=== PATIENT | male | born 1965 | race Caucasian/White ===

== ENCOUNTER → 2021-04-21 16:14 | Outpatient (BNVA) | payer OTHER, SELFPAY | PROVIDERS: Visit Provider Surgery | DX: Z11.52 Encounter for screening for COVID-19 (principal) | CPT/HCPCS: 87635 ==

== ENCOUNTER 2021-04-25 06:09 | Day surgery (SDC) | payer SELFPAY ==
[2021-04-24 09:35] VITALS: BMI 21.2
--- NOTE | 2021-04-25 06:28 | W.PM.OPSUD ---
Surgery/Procedure H&P Update DATE OF PROCEDURE: April 25, 2021 DATE H&P PERFORMED: 03/27/21 H&P UPDATE INFORMATION: I have reviewed H&P completed within last 30 days, I have examined patient prior to procedure and Changes to prior documentation as noted here CHANGES TO PREVIOUS DOCUMENTATION: After further evaluation of the patient, today is the hernia appears much larger than the day of the clinic encounter. And given the fact that the patient is a chronic smoker with the potential laparoscopic approach may affect his pulmonary status. I did further counseled the patient to go ahead with open approach from the beginning, patient and his spouse agreed on that. PREOP DIAGNOSIS: Right inguinal Hernia PRIMARY INDICATION FOR PROCEDURE: The same PLANNED PROCEDURE: Operation Date: 04/25/21 08:00 Proposed Procedures p LAP RIGHT INGUINAL HERNIA REPAIR WITH MESH- [id number] k40.90(Right) - Taqueria Bosch MD
[2021-04-25 06:30] VITALS: BP 129/81; PULSE 72; RESP 18; TEMP 36.8; O2SAT 97
[2021-04-25] MEDS: sodium chloride 0.9% 1,000 ML 30 ML IV (06:40)
--- NOTE | 2021-04-25 06:45 | ANES.PREANE2 ---
Pre-Anesthetic Assessment Pre-Anesthetic Assessment: Height/Weight: Height 1.73 m Weight 63.503 kg Temp Pulse Resp BP Pulse Ox 98.3 F 72 18 129/81 97 04/25/21 06:30 04/25/21 06:30 04/25/21 06:30 04/25/21 06:30 04/25/21 06:30 Preop Diagnosis: Right inguinal Hernia Proposed Procedure: Operation Date: 04/25/21 08:00 Proposed Procedures p Inguinal Hernia Repair Groin Hernia Repair(Right) - Taqueria Bosch MD Familial anesthetic complications: None Was Beta Néstor taken within 24 hours: N/A Was Clonidine taken within 24 hours: N/A Last intake: Intake Last Liquid Date 04/24/21 Last Liquid Time 21:00 Last Solid Date 04/24/21 Last Solid Time 18:30 Social: Social History: Tobacco and No alcohol Exam: Pre-Anes Outpt Exam: alert, oriented x 3, clear to auscultation bilaterally and regular rate & rhythm Airway: Cervical ROM: WNL MP: 3 Dentition: Other (very poor dentition) Pulmonary: Comments: bronchitis in the 90s : Comments: unilateral renal agenesis Anesthetic Plan: ASA status: 1 Anesthesia: General Risk of > 500 ml blood loss (7ml/kg in children): No PFSH Anesthesia PFSH: Medical History No pertinent family history Family History Father Cancer Brother Cancer Denies family history of CAD (coronary artery disease) Clotting disorder Bleeding disorder Social History Quit status (tobacco): not considering quitting Second hand smoke exposure: No Alcohol intake: never Caregiver/support person: Yes Lives independently: Yes Household members: spouse Marital status: service: No Current occupational status: unemployed History of recent travel: No Current gender identity: Male Special lenin needs: Yes Agree to transfusion: No Data Anesthesia Cardiac Studies: No Data to Display
[2021-04-25] MEDS: lidocaine 2% INJ 20 mL INJECTION (08:58)
--- NOTE | 2021-04-25 09:06 | PM.OP ---
Operative Report Date of procedure: April 25, 2021 Pre-op Diagnosis: Right inguinal Hernia Post-op diagnosis: same Post-op Findings: Indirect inguinal hernia Procedure Done: Open right inguinal hernia repair with mesh placement Implants: Polypropylene sheet and a cone large size Specimens removed/disposition: Hernial sac Surgeon: Taqueria Bosch Assembler Liquid Center: Surgical ketan Vides and Dashawn Circulating nurse Sasha Santillan Anesthesia: General (historic sites registrar Reuben) Estimated blood loss (mL): 5 Condition: stable Disposition: same day Brief History: Symptomatic right inguinal hernia. Procedure: Patient was identified in the holding area and right groin was marked by myself ,patient was taken to the operating room where he was placed in supine position,antibiotic was given with induction, endotracheal tube was placed per anesthesia,prep and drape of both groins and lower abdomen and scrotum including the genitalia was done under the usual sterile technique. Time-out was done verifying the patient's name/date of /planned procedure destination after the procedure, all were in agreement. SCDs confirmed to be functioning, preoperative antibiotics administered per protocol, and beta sg protocol was confirmed. I started with a right groin incision 1-1/2 finger above the inguinal ligament towards the pubic tubercle, used 15 blade knife skin incision , continued to dissect using Bovie to subcutaneous, Zohaib's fascia down to the external oblique aponeurosis, large right indirect inguinal hernia extending to the scrotum was identified, external oblique aponeurosis was then incised using a 10 blade knife, after application of 2 hemostats across sides of the fascia and opened it, right ileo-inguinal nerve was safeguard, I managed to dissect and deliver the enlarged spermatic cord out of the wound, and placed a Luis Felipe drain for traction and countertraction, I dissected the spermatic cord and the vas deferens is identified and safeguarded ,as I identified a right inguinal hernia sac , the hernia sac was totally dissected until I reached the patulous deep inguinal ring, I opened the hernia sac the contents were viable. I did apply a pursestring suture with 2-0 silk pop off under vision where I tied down and the sac went inside the abdominal cavity and I cut the extra sac and sent it for pathology. Attention was now deviated to mesh placement , using polypropylene mesh system was applied tension-free( large size), a cone was applied at the deep inguinal ring stabilized by 2 silk sutures, then a sheet of mesh was applied onto the floor of the posterior wall of the right inguinal canal and anchored medially to the pubic tubercle then inferiorly to the underlying surface of the inguinal ligament and superiorly to the internal oblique aponeurosis using silk sutures 2/0, both limbs of the mesh encircled the exit of the cord at the deep inguinal ring, and stitched down. Lidocaine 2% was injected The cord maintained to be in good position thorough irrigation of the wound was done with normal saline and closure of the external oblique aponeurosis was done by 2/O Vicryl, followed by approximation of Zohaib's fascia by 3-0 Vicryl then 4/0 Monocryl to close the skin, dressing was then applied in the form of Dermabond. Counts of instruments, sponges and needles were completed at the end of the procedure. Scrotal support was then placed Patient tolerated the procedure well and was taken to the recovery area after extubation I was present for the whole entire procedure
[2021-04-25 09:31] VITALS: BP 133/90; PULSE 72; RESP 16; TEMP 36.3; O2SAT 100
[2021-04-25 09:35] VITALS: BP 123/94; PULSE 74; RESP 20; TEMP 36.3; O2SAT 99
--- NOTE | 2021-04-25 09:39 | P.PCN_ITS ---
PACU note PACU note: VSS, Good respiratory effort, report to CLOTH WIRE WEAVER Post-Anesthesia Exam: awake
--- NOTE | 2021-04-25 09:39 | PM.PACU ---
PACU note PACU note: VSS, Good respiratory effort, report to DIFFERENTIAL TESTER Post-Anesthesia Exam: awake
[2021-04-25 09:42] VITALS: BP 143/91; PULSE 94; RESP 18; TEMP 36.3; O2SAT 99
[2021-04-25 09:47] VITALS: BP 136/94; PULSE 60; RESP 18; TEMP 36.2; O2SAT 99
[2021-04-25] MEDS: HYDROcodone-acetaminophen 5-325 mg Tablet 1 TAB PO (10:20)
[2021-04-25 10:22] VITALS: BP 142/81; PULSE 56; RESP 18; O2SAT 96
--- NOTE | 2021-04-25 14:12 | ANE.PACU2 ---
Inpatient post-anesthesia follow up: Airway intact: Yes Vital signs: Temperature 97.1 F Pulse Rate 56 Respiratory Rate 18 Blood Pressure 142/81 Pulse Oximetry 96 Oxygen Delivery Me thod Room Air Oxygen Flow Rate 8 Fraction of Inspir ed Oxygen Hydration adequate: Yes Nausea and vomiting: No Pain level: 2 Mental status: Baseline
== END 2021-04-25 10:40 | disposition home or self-care (01) ==
PROVIDERS: Visit Provider Surgery
PROC: (CPT 49505; principal; 2021-04-25 08:00)
DX: K40.90 Unilateral inguinal hernia, without obstruction or gangrene, not specified as recurrent (principal); F17.210 Nicotine dependence, cigarettes, uncomplicated
CPT/HCPCS: 49505; 88302; C1781; J0690; J1100; J2370; J2405; J2704; J2710; J3010; J3490; J7030

== ENCOUNTER 2022-09-29 14:10 | Emergency (ER) | payer OTHER, SELFPAY ==
[2022-09-29 14:16] VITALS: BP 122/80; PULSE 79; RESP 18; TEMP 36.7; O2SAT 95
--- NOTE | 2022-09-29 14:19 | ECG_ITS ---
[facility] Test Date: 2022-09-29 Pat Name: Phan Cruz Department: Room: Gender: Male Power Grader Operator: : 1965 Requested By: Jorge García Order Number: [id number] Montero MD: Vi Han M.D. Measurements Intervals [place] Rate: 71 P: 86 WA: 138 QRS: 87 QRSD: 87 T: 77 QT: 383 QTc: 418 Interpretive Statements SINUS RHYTHM No previous ECG available for comparison Electronically Signed On 09-30-2022 8:47:54 ENDORSEMENT CLERK by Vi Han M.D. [email or web address]
--- NOTE | 2022-09-29 14:27 | PC.NURSE ---
ekg performed in triage per tech
[2022-09-29 15:29] VITALS: BP 108/71; PULSE 67; TEMP 36.4; O2SAT 97
--- NOTE | 2022-09-29 18:37 | XRR_ITS ---
PROCEDURE INFORMATION: Exam: XR Chest Exam date and time: 09/29/2022 7:13 PM Age: 57 years old Clinical indication: Other: [id number] back pain; Patient HX: C/O chest pain and went to mid back and low back. Got nauseated -now better TECHNIQUE: Imaging protocol: Radiologic exam of the chest. Views: 1 view. COMPARISON: No relevant prior studies available. FINDINGS: Lungs: Right mid lung field 7.4 mm pulmonary nodule, dedicated nonemergent chest CT advised for further evaluation. Left lower lobe 13 mm subtle opacity may reflect a nipple shadow or the rib on end, however, a pulmonary nodule is also a consideration, dedicated nonemergent chest CT could also further evaluate this. Emphysematous changes. Pleural spaces: Unremarkable. No pleural effusion. No pneumothorax. Heart/Mediastinum: Unremarkable. No cardiomegaly. Bones/joints: See Lungs finding. XR/XR chest 1V portable [id number] IMPRESSION: 1. Negative for infiltrate. 2. Right mid lung field 7.4 mm pulmonary nodule, dedicated nonemergent chest CT advised for further evaluation. Left lower lobe 13 mm subtle opacity may reflect a nipple shadow or the rib on end, however, a pulmonary nodule is also a consideration, dedicated nonemergent chest CT could also further evaluate this. 3. Emphysematous changes.
[2022-09-29 19:15] LABS: Basophils # 0.1 10^3/uL (0.0-0.1); Basophils % 0.5 %; Eosinophils # 0.1 10^3/uL (0.0-0.8); Eosinophils % 0.6 %; Hemoglobin 14.5 g/dL (11.7-16.6); Lymphocytes # 1.7 10^3/uL (0.8-4.8); Lymphocytes % 16.9 %; Mean Corpuscular HGB Conc 32.2 g/dL (30.0-36.0); Mean Corpuscular Volume 96.4 fl (80-94); Mean Platelet Volume 10.4 fL (7.4-10.4); Monocytes # 0.6 10^3/uL (0.2-0.9); Neutrophils # 7.65 10^3/uL (1.8-7.7); Neutrophils % 75.7 %; Nucleated Red Blood Cells % 0 %; Platelet Count 198 10^3/cmm (130-400); Red Blood Count 4.67 10^6/uL (4.1-5.3); Red Cell Distribution Width 13.7 % (12.1-15.1); White Blood Count 10.1 10^3/uL (4.0-10.0)
--- NOTE | 2022-09-29 19:32 | ED_ITS ---
HPI - Abdominal Pain General: Chief Complaint: Abdominal Pain Stated Complaint: Chest Time Seen by Provider: 09/29/22 18:56 Source: patient and family History of Present Illness: 57-year-old male complains of epigastric discomfort radiating into his back. He became diaphoretic, had a low blood pressure and heart rate, with this pain. No chest pain. He vomited 1 time, with complete relief of the pain. No diarrhea. No shortness of breath. He has a chronic cough. He says that he had similar symptoms 6 months ago, without significant pain at that time, and again vomited with complete relief of the other symptoms. It was not investigated at that time. No prior history of coronary disease. This happened around 1 PM MD elicited complaint: abdominal pain Pertinent past history: none Onset (ago): hour(s) Pain Consistency: now resolved Location: Epigastric Quality: stabbing Radiation: back Migration to: no migration Relieving factors: nothing Associated Symptoms: Reports chills and vomiting (1 time); Denies belching, bloating, diarrhea and fever(s) Review of Systems Const: Reports: chills and change in weight (Has lost weight recently); Denies: fever(s) ENMT: Denies: throat pain Card: Denies: chest pain or palpitations Resp: Reports: non-productive cough (Chronic); Denies: dyspnea GI: Reports: vomiting (1 time); Denies: diarrhea, bloating or belching Neuro: Denies: headache(s) PFSH ED 2 PFSH: Medical History No pertinent family history Right inguinal hernia Family History Father Cancer Brother Cancer Denies family history of CAD (coronary artery disease) Clotting disorder Bleeding disorder Social History Quit status (tobacco): not considering quitting Second hand smoke exposure: No Alcohol intake: never Caregiver/support person: Yes Lives independently: Yes Household members: spouse Marital status: service: No Current occupational status: unemployed History of recent travel: No Current gender identity: Male Special lenin needs: Yes Agree to transfusion: No Physical Exam Const: COMMON NORMALS: no acute distress GENERAL APPEARANCE: not ill appearing and not frail appearing NUTRITIONAL APPEARANCE: thin HENMT: COMMON NORMALS: normocephalic, atraumatic and Normal external nose present HEAD & SCALP: normocephalic and atraumatic FACE & SINUS: normal facial exam and face symmetric NOSE: Normal external nose present Eye: COMMON NORMALS: Equal, round and reactive pupils present and EOMs intact bilaterally PUPIL: Yes Equal, round and reactive pupils present Neck/C-Spine: GENERAL: Yes trachea midline Chest: CHEST: Yes Symmetrical chest wall rise Resp: COMMON NORMALS: normal respiratory effort, No retractions, No use of accessory muscles and clear to auscultation bilaterally AUSCULTATION: clear to auscultation bilaterally Cardio: COMMON NORMALS: regular rate and regular rhythm RATE: regular rate RHYTHM: regular rhythm GI: COMMON NORMALS: Normal to inspection, nondistended, normoactive bowel sounds present Extremity: COMMON NORMALS: no pedal edema Neuro: GENESIS COMA SCALE: document GCS findings Maud coma scale eye opening: Spontaneous Maud coma scale verbal response: Orientated Genesis coma scale motor response: Obey commands Genesis coma scale total score: 15 SENSORY EXAM: Yes extremities (intact) Psych: COMMON NORMALS: speech normal SPEECH: Yes normal speech Skin: COMMON NORMALS: no rashes or lesions noted GENERAL SKIN EXAM: no rashes or lesions noted Course Vital Signs: Vital signs: Vital Signs Temperature 97.5 F L 09/29/22 15:29 Pulse Rate 77 09/29/22 20:40 Respiratory Rate 16 09/29/22 20:40 Blood Pressure 102/75 09/29/22 20:40 Pulse Oximetry 94 09/29/22 20:40 Oxygen Delivery Me thod 09/29/22 15:29 MDM - Abdominal Pain Medical Decision Making 57-year-old male with an episode of epigastric pain radiating into his back relieved by vomiting. Vitals been normal on the monitor. His belly is nontender. His white blood cell count is 10. Lipase is 64. Liver enzymes are normal. Hemoglobin is 14.5. Chest x-ray is negative for infiltrate or pneumothorax. There are some emphysematous changes, and a 7.4 mm pulmonary nodule that needs nonemergent chest CT follow-up. With resolution of his pain, which started around 1 PM, and a normal troponin of 6 and normal EKG, he will be allowed discharge. We will make him a PCP follow-up appointment for nonemergent testing. Case management has been asked to do this. He will be allowed discharge from the ER. Lab Data 09/29/22 19:10 09/29/22 19:10 Labs/Radiology: Radiology Impressions Chest X-Ray 09/29/22 18:37 IMPRESSION: 1. Negative for infiltrate. 2. Right mid lung field 7.4 mm pulmonary nodule, dedicated nonemergent chest CT advised for further evaluation. Left lower lobe 13 mm subtle opacity may reflect a nipple shadow or the rib on end, however, a pulmonary nodule is also a consideration, dedicated nonemergent chest CT could also further evaluate this. 3. Emphysematous changes. Laboratory Results WBC 10.1 10^3/uL (4.0-10.0) H 09/29/22 19:10 RBC 4.67 10^6/uL (4.1-5.3) 09/29/22 19:10 Hgb 14.5 g/dL (11.7-16.6) 09/29/22 19:10 Hct 45.0 % (42.0-52.0) 09/29/22 19:10 MCV 96.4 fl (80-94) H 09/29/22 19:10 MCH 31.0 pg (28.0-34.0) 09/29/22 19:10 MCHC 32.2 g/dL (30.0-36.0) 09/29/22 19:10 RDW 13.7 % (12.1-15.1) 09/29/22 19:10 Plt Count 198 10^3/cmm (130-400) 09/29/22 19:10 MPV 10.4 fL (7.4-10.4) 09/29/22 19:10 Neut % (Auto) 75.7 % 09/29/22 19:10 Lymph % (Auto) 16.9 % 09/29/22 19:10 [place] % (Auto) 6.0 % 09/29/22 19:10 Eos % (Auto) 0.6 % 09/29/22 19:10 Baso % (Auto) 0.5 % 09/29/22 19:10 Neut # (Auto) 7.65 10^3/uL (1.8-7.7) 09/29/22 19:10 Lymph # (Auto) 1.7 10^3/uL (0.8-4.8) 09/29/22 19:10 [place] # (Auto) 0.6 10^3/uL (0.2-0.9) 09/29/22 19:10 Eos # (Auto) 0.1 10^3/uL (0.0-0.8) 09/29/22 19:10 Baso # (Auto) 0.1 10^3/uL (0.0-0.1) 09/29/22 19:10 Nucleated RBC % (auto) 0 % 09/29/22 19:10 Nucleated RBCs # 0.0 /100WBC 09/29/22 19:10 Sodium 137 mmol/L (136-145) 09/29/22 19:10 Potassium 4.3 mmol/L (3.5-5.1) 09/29/22 19:10 Chloride 100 mmol/L (98-107) 09/29/22 19:10 Carbon Dioxide 24 mmol/L (22-29) 09/29/22 19:10 Anion Gap 17.3 (5-19) 09/29/22 19:10 BUN 24 mg/dL (6-20) H 09/29/22 19:10 Creatinine 0.6 mg/dL (0.7-1.2) L 09/29/22 19:10 GFR Calculation 138.4 mL/min (90-130) H 09/29/22 19:10 Glucose 92 mg/dL (65-115) 09/29/22 19:10 Calculated Osmolality 288 mOsm/kg (285-295) 09/29/22 19:10 Calcium 9.8 mg/dL (8.5-10.5) 09/29/22 19:10 Total Bilirubin 0.3 mg/dL (0.15-1.2) 09/29/22 19:10 AST 25 U/L (0-40) 09/29/22 19:10 ALT 24 U/L (0-41) 09/29/22 19:10 Alkaline Phosphatase 79 U/L (40-130) 09/29/22 19:10 Troponin T Baseline 6 ng/L (0-15) 09/29/22 19:10 Total Protein 7.1 g/dL (6.6-8.7) 09/29/22 19:10 Albumin 4.5 g/dL (3.5-5.2) 09/29/22 19:10 Globulin 2.6 g/dL (1.3-4.6) 09/29/22 19:10 Lipase 64 U/L (13-60) H 09/29/22 19:10 Discharge Plan Discharge Patient Disposition: Home Clinical Impression: Acute epigastric pain Condition: Stable Discharge Orders: Discharge ED (Routine); Ordered 09/29/22 Ordered By: Cliff Sinclair Patient Instructions: Abdominal Pain (ED) Activity Restrictions/Additional Instructions: Return for any return of your pain, vomiting, shortness of breath, fever, any other concerning symptoms. He will likely require more outpatient testing. Our telephonic case manager will make you an appointment for outpatient follow-up. If you do not hear from them by Saturday, Dial [phone] and ask for the ER telephonic case manager during normal business hours. Coding Level of Care Code ED Motor Pool Clerk for Lilian Fwwendy Exam Comprehensive
[2022-09-29 19:48] LABS: Troponin(5th) Baseline 6 ng/L (0-15)
[2022-09-29 19:49] LABS: Alanine Aminotransferase 24 U/L (0-41); Albumin Level 4.5 g/dL (3.5-5.2); Alkaline Phosphatase 79 U/L (40-130); Aspartate Amino Transferase 25 U/L (0-40); Blood Urea Nitrogen 24 mg/dL (6-20); Calcium 9.8 mg/dL (8.5-10.5); Carbon Dioxide 24 mmol/L (22-29); Chloride 100 mmol/L (98-107); Globulin 2.6 g/dL (1.3-4.6); Glomerular Filtration Rate 138.4 mL/min (90-130); Glucose 92 mg/dL (65-115); Lipase 64 U/L (13-60); Osmolality Calculated 288 mOsm/kg (285-295); Sodium 137 mmol/L (136-145); Total Bilirubin 0.3 mg/dL (0.15-1.2); Total Protein 7.1 g/dL (6.6-8.7)
[2022-09-29 19:52] LABS: Creatinine Clr Calc Pharmacy 126.1152
[2022-09-29 19:53] LABS: Anion Gap 17.3 (5-19); Potassium 4.3 mmol/L (3.5-5.1)
[2022-09-29 20:40] VITALS: BP 102/75; PULSE 77; RESP 16; O2SAT 94
--- NOTE | 2022-10-04 11:01 | DCPLANNER ---
Addendum entered by Haven Hobson 11/21/22 07:14: Patient had a follow up appointment to establish care at [facility] with Dr. Huitron - patient did attend appointment. Addendum entered by Haven Hobson 10/08/22 09:04: Patients called clinical case manager asking about follow up appointment, clinical case manager explained that clinical case manager had a message to speak with patient about getting established with a primary care physician to run some outpatient testing. Patient would like to get established at the [facility]. ethanol operations manager called the [facility], gave clinic patients information. A follow up appointment was scheduled for Saturday, October 15, 2022 at 2:[address] Huitron. ethanol operations manager gave patients the appointment information. Original Note: ethanol operations manager had message to speak with patient about getting established with a primary care physician. ethanol operations manager called phone number [phone] - this line just gave a busy signal - unable to speak with patient at this time.
== END 2022-09-29 20:40 | disposition home or self-care (01) ==
PROVIDERS: Physician Assistant; Emergency Provider Emergency Medicine
DX: R10.13 Epigastric pain (principal)
CPT/HCPCS: 71045; 80053; 83690; 84484; 85025; 93005; 99285

== ENCOUNTER → 2022-10-15 15:43 | Outpatient (BNVA) | payer OTHER, SELFPAY | PROVIDERS: Visit Provider Family Medicine | DX: R89.9 Unspecified abnormal finding in specimens from other organs, systems and tissues (principal); R91.1 Solitary pulmonary nodule | CPT/HCPCS: 83690 ==

== ENCOUNTER 2022-12-03 07:05 | Outpatient (CLI) | payer OTHER, SELFPAY ==
--- NOTE | 2022-12-03 07:30 | CTR_ITS ---
PROCEDURE INFORMATION: Exam: CT Chest Without and With Contrast; Diagnostic Exam date and time: 12/03/2022 7:39 AM Age: 57 years old Clinical indication: Abnormal findings; Abnormal radiologic exam of lung or chest; Cough and shortness of breath; Patient HX: Follow up to abnormal xray, shortness of breath and cough since September. TECHNIQUE: Imaging protocol: Diagnostic computed tomography of the chest without and with contrast. Radiation optimization: All CT scans at this facility use at least one of these dose optimization techniques: automated exposure control; mA and/or kV adjustment per patient size (includes targeted exams where dose is matched to clinical indication); or iterative reconstruction. Contrast material: OMNI 350; Contrast volume: 95 ml; Contrast route: INTRAVENOUS (IV); REPORTING DATA: Count of CT and Cardiac NM exams in prior 12 months: This patient has received 0 known CTs and 0 known cardiac nuclear medicine studies in the 12 months prior to the current study. COMPARISON: CR (CHEST, ) 09/29/2022 7:13 PM RADIATION DOSE METRICS: Total DLP (mGy-cm): 379.4 FINDINGS: Lungs: Stable severe COPD . Pleural spaces: Unremarkable. No pneumothorax. No pleural effusion. Heart: Unremarkable. No cardiomegaly. No pericardial effusion. Coronary arteries: Moderate calcified coronary artery disease. Lymph nodes: Stable right calcified hilar nodes and/or mediastinal nodes and/or lung nodules consistent with old granulomatous disease. Vasculature: Calcification of the abdominal aorta and/or iliac arteries consistent with atherosclerotic vessel disease. Calcification of the thoracic aorta and/or great vessels consistent with atherosclerotic vessel disease. Bones/joints: Mild thoracic spondylosis. Soft tissues: Unremarkable. CT/CT chest wo/w con [id number] IMPRESSION: Stable severe COPD .
[2022-12-03] MEDS: iohexol 350 mg/mL 500 mL Btl (per mL) IV (07:47)
== END 2022-12-03 07:06 | disposition home or self-care (01) ==
LOC: RAD 07:09
PROVIDERS: PCP Family Medicine; Visit Provider Family Medicine
DX: R91.1 Solitary pulmonary nodule (principal); J44.9 Chronic obstructive pulmonary disease, unspecified
CPT/HCPCS: 71270; Q9967

== ENCOUNTER 2023-05-07 11:11 | Outpatient (CLI) | payer OTHER, SELFPAY ==
[2023-05-07 11:34] VITALS: PULSE 84; RESP 18; O2SAT 98
[2023-05-07] MEDS: albuterol 2.5 mg/3 mL Neb INHALATION (11:34)
[2023-05-07 11:38] VITALS: PULSE 91
--- NOTE | 2023-05-07 11:52 | XR_ITS ---
WS: [id number] Exam: XR knee LT 1-2V [id number] Date/Time of Exam: 05/07/2023 12:21 PM Reason For Exam: OA No fracture or dislocation. No joint effusion seen. The joint compartments are relatively well-mainta ined. IMPRESSION: 1. No fracture or other significant finding.
== END 2023-05-07 11:12 | disposition home or self-care (01) ==
PROVIDERS: PCP Family Medicine; Visit Provider Dermatology
DX: J44.9 Chronic obstructive pulmonary disease, unspecified (principal); M17.12 Unilateral primary osteoarthritis, left knee
CPT/HCPCS: 73560; 94060; 94729; J7613

== ENCOUNTER → 2024-06-01 17:30 | Outpatient (BNVA) | payer OTHER, SELFPAY | PROVIDERS: PCP Family Medicine; Visit Provider Family Medicine | DX: Z13.220 Encounter for screening for lipoid disorders (principal); Z13.6 Encounter for screening for cardiovascular disorders | CPT/HCPCS: 80053; 80061; 84443; 85025 ==

== ENCOUNTER 2024-07-23 07:56 | Outpatient (CLI) | payer OTHER, SELFPAY ==
--- NOTE | 2024-07-23 08:00 | CT_ITS ---
WS: [id number] LDCT LUNG CANCER SCREENING HISTORY: F17.210 - Nicotine dependence, cigarettes, uncomplicated TECHNIQUE: Axial imaging performed from the apices to 1 cm below the costophrenic angles. Coronal and sagittal reformats are submitted with axial MIP series. All CT scans at [facility] use at least one of these dose optimization techniques: automated exposure control; mA and/or kV adjustment per patient size (includes targeted exams where dose is matched to clinical indication); or iterativ e reconstruction. DLP: 49.90 mGy.cm DIvol: Mean CTDIvol: 0.80 (mGy) COMPARISON: 12/03/2022 Diagnostic quality: Satisfactory Lungs: Marked pulmonary hyperexpansion. Scattered granulomata which are calcified in each lung. Marke d bullous emphysema. No mass or nodule. No endobronchial lesions. Heart: Normal size heart with no pericardial effusion.. Other findings: Mild atherosclerosis aorta. Normal size pulmonary artery. No chest wall abnormality. Calcified mediastinal lymph nodes. Small hiatal hernia. CT/CT lung screening [id number] IMPRESSION: LUNG-RADS: 1-Negative FOLLOW UP: 12 Month: Continue annual screening with LDCT OTHER FINDINGS (S MODIFIER): None.
== END 2024-07-23 07:57 | disposition home or self-care (01) ==
LOC: RAD 07:57
PROVIDERS: PCP Nurse Practitioner Family; Visit Provider Nurse Practitioner Family
DX: Z12.2 Encounter for screening for malignant neoplasm of respiratory organs (principal); F17.210 Nicotine dependence, cigarettes, uncomplicated; J44.9 Chronic obstructive pulmonary disease, unspecified; J84.10 Pulmonary fibrosis, unspecified; J43.9 Emphysema, unspecified; K44.9 Diaphragmatic hernia without obstruction or gangrene
CPT/HCPCS: 71271

== ENCOUNTER → 2024-08-10 15:24 | Outpatient (BNVA) | payer OTHER, SELFPAY | PROVIDERS: PCP Nurse Practitioner Family; Visit Provider Nurse Practitioner Family | DX: R07.89 Other chest pain (principal); R07.81 Pleurodynia; J44.1 Chronic obstructive pulmonary disease with (acute) exacerbation | CPT/HCPCS: 71046; 71100 ==